=== PATIENT | female | born 1955 | race Caucasian/White ===

== ENCOUNTER 2020-03-26 07:38 | Day surgery (SDC) | payer BC ==
[2020-03-26] MEDS ORDERED: Midazolam 1 MG/ML 2 ML SDV ONE (08:08)
[2020-03-26] MEDS ORDERED: Propofol 200 MG/20 ML SDV ONE (08:08)
[2020-03-26] MEDS ORDERED: fentaNYL 100 MCG/2 ML SDV ONE (08:08)
[2020-03-26] MEDS ORDERED: Sodium Chloride 0.9% 1,000 ML IV SCH (08:45)
[2020-03-26] MEDS ORDERED: Barium Sulfate 105% w/v Susp 1,900 ML Bottle PO ONE (11:30)
--- NOTE | 2020-03-26 12:17 | CR ---
Abdomen 1V Flat CLINICAL HISTORY: Incomplete colonoscopy FINDINGS: Pulmonary film prior to scheduled barium enema shows very redundant colon with diffuse gaseous distention. IMPRESSION: Moderate colonic distention Moderately redundant: Scheduled barium enema was postponed 1 day with the patient to remain on clear liquids
--- NOTE | 2020-03-26 12:54 | OR ---
DATE OF PROCEDURE: 03/26/2020 SURGEON: Paxton Li MD PROCEDURE: Colonoscopy. FINDINGS: Torsion of transverse colon with the inability to safely pass through this anatomical variant. COMPLICATION: None. SWITCH TECHNICIAN: None. ANESTHESIA: MAC. PREOPERATIVE DIAGNOSIS: Screening colonoscopy. POSTOPERATIVE DIAGNOSIS: Screening colonoscopy. RISKS: Risks, benefits, alternatives, and limitations including, but not limited to, infection, bleeding, and perforation were explained to the patient, who wished to proceed. PROCEDURE IN DETAIL: The patient was placed in left lateral decubitus position. Digital rectal exam was performed without abnormality. Scope was introduced and advanced atraumatically to the level of the transverse colon. The patient did have a torsion of this area, which precluded the scope from being safely advanced. Gentle attempts with keeping the lumen in view were attempted, however, this was terminated once the ability to pass through safely was not able to be achieved. The scope was brought back through the remainder of the colon and retroflexed. No evidence of old or new blood. No masses. No polyps. No diverticulosis. The patient tolerated the procedure well. Paxton Li MD /[id number]
== END 2020-03-26 12:00 | disposition home or self-care (01) ==
LOC: JP.SDS 07:38
PROVIDERS: ATTEND Surgery
DX: Z12.11 Encounter for screening for malignant neoplasm of colon (principal); K56.2 Volvulus
CPT/HCPCS: 45378; 74018; J2250; J2704; J3010; J7030

== ENCOUNTER 2021-12-25 16:12 | Emergency (ER) | payer BC ==
[2021-12-25] MEDS ORDERED: Ketorolac 30 MG/ML SDV IVPUSH ONE (16:43)
[2021-12-25] MEDS ORDERED: Sodium Chloride 0.9% 1,000 ML IV SCH (16:45)
[2021-12-25] MEDS ORDERED: Ondansetron 4 MG/2 ML SDV IVPUSH ONE (16:58)
[2021-12-25] MEDS ORDERED: Tamsulosin 0.4 MG Cap.ER PO ONE (18:28)
== END 2021-12-25 19:33 | disposition home or self-care (01) ==
LOC: JP.ED 16:12
DX: R10.83 Colic (principal); N13.30 Unspecified hydronephrosis; Z79.899 Other long term (current) drug therapy
CPT/HCPCS: 36415; 74176; 80053; 81001; 85025; 96361; 96374; 96375; 99284; A9270; J1885; J2405; J7030